=== PATIENT | male | born 2000 ===

== ENCOUNTER 2021-01-25 20:31 | Emergency (ER) | payer SELFPAY ==
[2021-01-25 20:41] VITALS: BP 139/78; PULSE 97; RESP 14; TEMP 36.6; O2SAT 98
--- NOTE | 2021-01-25 21:44 | PC.NURSE ---
Pt walked out without seeing provider at this time. No sign of any kind of distress, steady gait.
== END 2021-01-26 05:19 | disposition left against medical advice (07) ==
DX: K08.89 Other specified disorders of teeth and supporting structures (principal)
CPT/HCPCS: 99199